=== PATIENT | female | born 1975 | race Caucasian/White ===

== ENCOUNTER → 2016-04-03 | Outpatient (CLI) | payer BC ==
[~2016-04-03] MED LIST: ESCI10TA17 PO; PRENTAB26 PO
== END | disposition home or self-care (01) ==
LOC: C.LABSPEC 13:44
PROVIDERS: ATTEND Obstetrics & Gynecology
DX: N76.0 Acute vaginitis (principal)

== ENCOUNTER → 2016-10-30 | Outpatient (CLI) | payer BC | END | disposition home or self-care (01) | LOC: C.PAPS 14:05 | PROVIDERS: ATTEND Obstetrics & Gynecology | DX: Z01.419 Encounter for gynecological examination (general) (routine) without abnormal findings (principal) ==

== ENCOUNTER 2018-03-24 01:51 | Observation (INO) ==
[2018-03-24] MEDS ORDERED: ALBUT/IPRATROP 3MG/0.5MG NEB 3 ML VIAL ONE (01:57)
[2018-03-24] MEDS ORDERED: SODIUM CHLORIDE 0.9% 1000ML 1,000 ML IV ONE ×2 (02:00→03:53)
[2018-03-24] MEDS ORDERED: DEXAMETHASONE **PF** INJ 10 MG/ML VIAL IV ONE (02:00)
[2018-03-24] MEDS ORDERED: ALBUT/IPRATROP 3MG/0.5MG NEB 3 ML VIAL NEB ONE (02:00)
--- NOTE | 2018-03-24 02:01 | Emergency Department Note ---
ED Provider Note Name: Diana Downey Age: 43 F Arrives Via: POV Informant: Pt, CC: SHOB HPI: 42 female arrives for evaluation of SHOB. Patient with URI symptoms and fevers for last 4 to 5 days. Gradually worsening cough and shortness of breath over the last last day. Non-productive cough. Significantly worsening respiratory distress over the last few hours. Worse with exertion. Minimally better with rest. No medications prior to arrival. Associated diffuse chest tightness. Multiple sick family members. Did not get flu shot this year. Recent travel to [place]. No history of DVT, leg swelling, calf pain. Sister with Factor 5 and PEs, though patient states she was tested and is negative. No trauma, injury, syncope, rashes, headache, neck pain, nor other symptoms. No recent steroids nor antibiotics. She has history of asthma with last exacerbation 5 yrs ago requiring admission. ROS: See above HPI for pertinent positives & negatives. A total of 10 systems reviewed and were otherwise negative. Past Medical History: Asthma, Seasonal Allergies Past Surgical History: Family History: Sister with Factor 5 Social History: [employer], lives with family, no tobacco nor drug use Home Medications: none Allergies seasonal allergies Physical: Vitals: T37.5, P 144, R 18, BP 137/88, O2 98% RA Exam: GENERAL: Patient is very uncomfortable appearing and in moderate distress. EYES: No scleral icterus, unremarkable pupils. ENT: Mucous membranes moist, no nasal congestion. NECK: No masses appreciated, no meningismus, trachea is midline. RESPIRATORY: Moderate dyspnea, tachypnea, diffusely tight lung sounds with diffuse mild distant wheezing. CARDIOVASCULAR: Tachycardic. No murmurs, rubs, gallops appreciated. GASTROINTESTINAL: Abdomen soft, non-tender, no peritonitis. Bowel sounds positive. No masses appreciated. BACK: No midline tenderness, no CVA tenderness EXTREMITIES: Normal motion all extremities, no cyanosis, no edema. NEUROLOGIC: Alert and oriented, no acute motor or sensory deficits, no focal weakness, cranial nerves grossly intact. SKIN: No rash, no jaundice, no diaphoresis. ED Course: Prior Medical Record, Triage/Nursing Notes, Medications, Allergies reviewed by Me Vital Signs: reviewed and remarkable for Tachy Labs: Reviewed and remarkable for Mild WBC elevation, neg Trop, wnl dimer, normal bmp Interventions: Saline Lock, Duoneb x 1.5 hrs, Decadron 10mg IV Imaging: X ray results are stated below per my interpretation: Chest: 1 view: Hyperinflated lungs, No infiltrate, no effusion, normal cardiac border. EKG: Per My interpretation: ST 120bpm without ectopy nor ischmia. No recent for comparison Consults: Dr Kelly who will bring in for further monitoring/treatment Reassessments/Times: Much improved with clearing lungs though still very dyspneic and tachycardic. Blood pressure: Normal. No Referral necessary Disposition: Hospitalization. Prescriptions: None. Differentials: Asthma, PNA, Flu, PE, Dissection, ACS, Pericarditis amongst other pathologies. Medical Decision Making: Pleasant 43 yr old female in status asthmaticus on arrival and very shob. Moving minimal air on arrival. Started continuous neb with initially loud wheezing and then gradually clearing lung sounds. She was tachy on arrival and thus given fluids but continued to remain tachycardic. She Was given further fluids with mild improvement. Labs with mild WBC elevation though no fever. She has clear CXR without infiltrate. Dimer wnl and symptoms more consistent with asthma. I do not feel that she requires CT PE at this time, and I think risks of imaging outweight benefits. Suspect underlying issue is same viral process her son currently has. Discussed abx with hospitalist who will manage further. Impression: Asthma with status asthmaticus Tachycardia Tucker Alvarez MD Impression & Plan Asthma with status asthmaticus, Tachycardia Past Med/Surg History Social History Smoking Status: Never smoker Results & Data Vital Signs Vital Signs - 24 hr 03/24/18 01:53 03/24/18 01:57 03/24/18 02:48 Temperature 37.5 C Temperature Source Oral Sepsis Recent Fever Within 48 Hours No Sepsis Action Taken by Nursing No Action Required Pulse Rate 144 H Pulse Rate [Finger] 128 H Respiratory Rate 18 22 Respiratory Effort / Characteristics Non-Labored Respiratory Depth Normal Respiratory Pattern Regular Blood Pressure 137/88 Blood Pressure [Left Arm] 115/79 Blood Pressure Mean 104 Blood Pressure Mean [Left Arm] 91 Pulse Oximetry 98 99 Oxygen Delivery Method Room Air Room Air Room Air Oxygen Flow Rate 03/24/18 03:45 03/24/18 04:00 03/24/18 04:59 Temperature Temperature Source Sepsis Recent Fever Within 48 Hours Sepsis Action Taken by Nursing Pulse Rate Pulse Rate [Finger] 132 H 127 H Respiratory Rate 18 18 Respiratory Effort / Characteristics Respiratory Depth Respiratory Pattern Blood Pressure Blood Pressure [Left Arm] 109/75 106/66 Blood Pressure Mean Blood Pressure Mean [Left Arm] 86 79 Pulse Oximetry 95 97 97 Oxygen Delivery Method Room Air Nasal Cannula Nasal Cannula Oxygen Flow Rate 2 2 Laboratory Data Result diagrams: 03/24/18 02:10 03/24/18 02:10 Lab Results 03/24/18 03/24/18 03/24/18 Range/Units 02:10 02:10 02:10 WBC 14.99 H (4.8-10.8) K/uL RBC 4.22 (4.2-5.4) M/uL Hgb 13.0 (12.0-16.0) g/dL Hct 37.1 (37-47) % MCV 87.9 (80-100) fL MCH 30.8 (25-34) pg MCHC 35.0 (32-36) g/dL RDW Std Deviation 39.4 (36.4-46.3) fL RDW Coeff of Nayeli 12.2 (11.5-14.5) % Plt Count 172 (130-400) K/uL MPV 10.2 (7.4-10.4) fL Immature Gran % (Auto) 0.2 % Neut % (Auto) 79.3 % Lymph % (Auto) 10.9 % Pratt % (Auto) 8.5 % Eos % (Auto) 0.9 % Baso % (Auto) 0.2 % Immature Gran # (Auto) 0.03 H (0.00-0.02) K/uL Neut # (Auto) 11.89 H (1.4-6.5) K/uL Lymph # (Auto) 1.63 (1.2-3.4) K/uL Pratt # (Auto) 1.28 H (0.11-0.59) K/uL Eos # (Auto) 0.13 (0-0.5) K/uL Baso # (Auto) 0.03 (0-0.2) K/uL D-Dimer 450 (0-500) ug/L FEU Sodium 139 (136-145) mmol/L Potassium 3.7 (3.5-5.1) mmol/L Chloride 110 H (98-107) mmol/L Carbon Dioxide 21 (21-32) mmol/L Anion Gap 8.0 (3-11) BUN 16 (7-18) mg/dl Creatinine 0.90 (0.6-1.2) mg/dl Est Cr Clr Drug Dosing 78.3 ml/min Est GFR ( Amer) 91.4 Est GFR (Non-Af Amer) 78.9 BUN/Creatinine Ratio 17.7 (10-20) Glucose 116 H (70-99) mg/dl Calcium 9.0 (8.5-10.1) mg/dl Troponin I < 0.015 (0-0.045) ng/ml Influenza Type A (PCR) (Neg) Influenza Type B (PCR) (Neg) 03/24/18 Range/Units 02:10 WBC (4.8-10.8) K/uL RBC (4.2-5.4) M/uL Hgb (12.0-16.0) g/dL Hct (37-47) % MCV (80-100) fL MCH (25-34) pg MCHC (32-36) g/dL RDW Std Deviation (36.4-46.3) fL RDW Coeff of Nayeli (11.5-14.5) % Plt Count (130-400) K/uL MPV (7.4-10.4) fL Immature Gran % (Auto) % Neut % (Auto) % Lymph % (Auto) % Pratt % (Auto) % Eos % (Auto) % Baso % (Auto) % Immature Gran # (Auto) (0.00-0.02) K/uL Neut # (Auto) (1.4-6.5) K/uL Lymph # (Auto) (1.2-3.4) K/uL Pratt # (Auto) (0.11-0.59) K/uL Eos # (Auto) (0-0.5) K/uL Baso # (Auto) (0-0.2) K/uL D-Dimer (0-500) ug/L FEU Sodium (136-145) mmol/L Potassium (3.5-5.1) mmol/L Chloride (98-107) mmol/L Carbon Dioxide (21-32) mmol/L Anion Gap (3-11) BUN (7-18) mg/dl Creatinine (0.6-1.2) mg/dl Est Cr Clr Drug Dosing ml/min Est GFR ( Amer) Est GFR (Non-Af Amer) BUN/Creatinine Ratio (10-20) Glucose (70-99) mg/dl Calcium (8.5-10.1) mg/dl Troponin I (0-0.045) ng/ml Influenza Type A (PCR) Neg for Influ A (Neg) Influenza Type B (PCR) Neg for Influ B (Neg) Administered Medications Discontinued Medications Albuterol (Duoneb) Confirm Administered Dose 3 ml .ROUTE .STK-MED ONE Stop: 03/24/18 01:58 Last Admin: 03/24/18 01:58 Dose: 3 ml Albuterol (Duoneb) 12 ml NEB ONE ONE Stop: 03/24/18 02:01 Last Admin: 03/24/18 02:15 Dose: 12 ml Dexamethasone Sodium Phosphate (Decadron Pf) 10 mg IV NOW ONE Stop: 03/24/18 02:01 Last Admin: 03/24/18 02:15 Dose: 10 mg Sodium Chloride (Nss 1000ml) 1,000 mls @ 999 mls/hr IV .Q1H1M ONE Stop: 03/24/18 03:00 Last Infusion: 03/24/18 03:17 Dose: 0 mls/hr Admin: 03/24/18 02:15 Dose: 999 mls/hr Sodium Chloride (Nss 1000ml) 1,000 mls @ 999 mls/hr IV .Q1H1M ONE Stop: 03/24/18 04:53 Last Infusion: 03/24/18 05:02 Dose: 0 mls/hr Admin: 03/24/18 04:00 Dose: 999 mls/hr Discharge Plan Visit Data Chief Complaint: Respiratory Problems Stated Complaint: ASTHMA ATTACK, UPPER RESP INFECTION ED Provider: Tucker Alvarez Discharge Problem: Asthma with status asthmaticus, Tachycardia Forms Stand Alone Forms: My [employer] Prescriptions Prescriptions: No Action albuterol sulfate 90 mcg/actuation HFA aerosol inhaler 2 puff Inhalation QID PRN (Reason: Shortness Of Breath Or Wheezing) RF: 0 fluticasone 50 mcg/actuation spray,suspension 1 spray Intranasal DAILY RF: 0 Referrals Referrals: PCP,NO [Primary Care Provider] -
[2018-03-24 02:53] LABS: Basophils # (auto) 0.03 K/uL (0-0.2); Basophils % (auto) 0.2 %; Eosinophils # (auto) 0.13 K/uL (0-0.5); Eosinophils % (auto) 0.9 %; Hematocrit (blood only) 37.1 % (37-47); Immature Granulocytes # (auto) 0.03 K/uL (0.00-0.02); Immature Granulocytes % (auto) 0.2 %; Lymphocytes # (auto) 1.63 K/uL (1.2-3.4); Lymphocytes % (auto) 10.9 %; Mean Corpuscular Volume 87.9 fL (80-100); Mean Platelet Volume 10.2 fL (7.4-10.4); Monocytes # (auto) 1.28 K/uL (0.11-0.59); Monocytes % (auto) 8.5 %; Neutrophils # (auto) 11.89 K/uL (1.4-6.5); Neutrophils % (auto) 79.3 %; Platelet Count 172 K/uL (130-400); RDW Coefficient of Variation 12.2 % (11.5-14.5); RDW Standard Deviation 39.4 fL (36.4-46.3); Red Blood Count 4.22 M/uL (4.2-5.4); White Blood Count 14.99 K/uL (4.8-10.8)
[2018-03-24 02:56] LABS: Creatinine Clr Calc Pharmacy 78.3 ml/min
[2018-03-24 03:08] LABS: BUN Creatinine Ratio 17.7 (10-20); Blood Urea Nitrogen 16 mg/dl (7-18); Carbon Dioxide 21 mmol/L (21-32); Chloride 110 mmol/L (98-107); Est GFR (African American) 91.4; Est GFR (Non-African American) 78.9; Glucose 116 mg/dl (70-99); Potassium 3.7 mmol/L (3.5-5.1); Sodium 139 mmol/L (136-145)
[2018-03-24 03:10] LABS: Influenza A virus by PCR Neg for Influ A (Neg); Influenza B virus by PCR Neg for Influ B (Neg)
[2018-03-24 03:13] LABS: Troponin I < 0.015 ng/ml (0-0.045)
--- NOTE | 2018-03-24 05:24 | History & Physical Report ---
Date of Service March 24, 2018 Assessment & Plan (1) Asthma with status asthmaticus: 43 y/o F Hx asthma, seasonal allergies. The pt has had upper respiratory symptoms for > 5 days. She reports a fever of 100.5 3 days ago, a productive cough and progressive dyspnea pronounced with exertion. she states that she has occasionally had some blood streaks in her sputum. She presented to the ER early AM due to nonresolving symptoms and SOB. She was markedly tachypneic on arrival although she was able to maintain a saturation in the low 90s. Initial CXR is likely clear although there may be a developing RLL infiltrate. Labs are notable for leukocytosis. The pt is admitted due to persistent dyspnea which did not improve with steroids and an 1.5 hr neb treatment provided in the ER. As I cannot r/o PNM I will placed her on a course of Doxycycline. She will be placed on scheduled solumedrol and albuterol otherwise. The reported blood streaking is apparently infrequent and likely related to tracheal irritation. A sputum culture is pending and if hemoptysis persists or worsens we would consider a CT chest. Full code - SCDs due to potential hemoptysis Total time for this admit including review of labs, meds, imaging, records - discussion with t and ER attending - 35 min Present on Admission?: Yes History of Present Illness Chief Complaint: Cough, SOB Primary Care Provider: NO PCP 43 y/o F Hx asthma, seasonal allergies. The pt has had upper respiratory symptoms for > 5 days. She reports a fever of 100.5 3 days ago, a productive cough and progressive dyspnea pronounced with exertion. she states that she has occasionally had some blood streaks in her sputum. She presented to the ER early AM due to nonresolving symptoms and SOB. She was markedly tachypneic on arrival although she was able to maintain a saturation in the low 90s. Initial CXR is likely clear although there may be a developing RLL infiltrate. Labs are notable for leukocytosis. PMH: 1) Asthma 2) Seasonal allergies Social: Does not smoke, rarely drinks Family: Mother due to meningioma Allergies Allergy/AdvReac Type Severity Reaction Status Date / Time Iodinated Contrast- Oral and Allergy Mild HIVES Verified 03/24/18 03:17 IV Dye clarithromycin AdvReac Mild GI SYMPTOMS Verified 03/24/18 03:17 Home Medications Home Medications Medication Instructions Recorded Confirmed Type albuterol sulfate 2 puff INHALATION QID PRN 03/24/18 03/24/18 History fluticasone 1 spray INTRANASAL DAILY 03/24/18 03/24/18 History Past Med/Surg History Social History Smoking Status: Never smoker Review of Systems Gen: Fevers reported - states they terminated 3 days ago ENT: Denies throat pain, hearing loss Eyes: Denies acute visual changes CV: Denies CP, palpitations Pulmonary: SOB and a productive cough as above GI: Denies N/V, diarrhea, constipation Neuro: Denies acute or unilateral weakness, acute gait impairment, headache or acute visual changes Musculoskeletal: Denies joint pain, inflammation Endocrine: Denies polydipsia, polyuria Skin: Denies acute rashes or ulcers Physical Exam 2 Vital Signs (Past 24 Hours): Last Vital Signs Temp 37.5 C 03/24/18 01:53 Pulse 127 H 03/24/18 04:59 Resp 18 03/24/18 04:59 BP 106/66 03/24/18 04:59 Pulse Ox 97 03/24/18 04:59 Physical Exam: General: AAO x 3, no distress ENT: No erythema or exudates, no thrush Eyes: CAROLINE, EOMI Head and neck: Normocephalic, atraumatic, No JVD, neck is supple. Chest/heart: Nontender, S1,2, RRR, no murmurs, no gallops Lungs: CTAB, no wheezing or crackles - reduced air entry is appreciated in the R lower lung Abdomen: Nontender, nondistended, BS+ Neuro: AAO x 3, speech is clear, no unilateral weakness or loss of sensation, coordination intact Musculoskeletal: No joint inflammation, muscle tenderness, FROM Skin: No acute rashes or ulcers Extremities: No clubbing, cyanosis, edema _ (1) Asthma with status asthmaticus Asthma persistence: persistent Asthma severity: severe Qualified Code(s): J45.52 - Severe persistent asthma with status asthmaticus
[2018-03-24] MEDS ORDERED: ALBUTEROL 0.083% NEBU SOLN 3 ML VIAL NEB SCH (05:45)
[2018-03-24] MEDS ORDERED: PNEUMOCOCCAL ADMINISTRATION CHARGE ONE (06:15)
[2018-03-24] MEDS ORDERED: PNEUMOCOCCAL POLYSACCHARIDES 25 MCG/0.5 ML VIAL/SYR IM ONE (06:15)
[2018-03-24] MEDS ORDERED: INFLUENZA ADMINISTRATION CHARGE ONE (06:15)
[2018-03-24] MEDS ORDERED: INFLUENZA VIRUS QUAD VACCINE 0.5 ML SYR IM ONE (06:15)
--- NOTE | 2018-03-24 06:15 | XRay Report ---
XR chest 1V portable CLINICAL HISTORY: SHOB dyspnea COMPARISON STUDY: No previous studies for comparison. FINDINGS: The bones soft tissues and hemidiaphragms are normal. The cardiomediastinal silhouette is n ormal. The lungs are clear. The pulmonary vasculature is normal. IMPRESSION: Negative chest. The above report was generated using voice recognition software. It may contain grammatical, syntax or spelling errors. Electronically signed by: Mitchell Riggs M.D. 03/24/2018 6:14 AM
[2018-03-24] MEDS ORDERED: ACETAMINOPHEN 325 MG TAB PO PRN (06:22)
[2018-03-24] MEDS ORDERED: ONDANSETRON INJ 2 MG/ML 2 ML VIAL IV PRN (06:22)
[2018-03-24] MEDS ORDERED: D5NSS + 20MEQ KCL 20 MEQ/1,000 ML BAG IV SCH (06:22)
[2018-03-24] MEDS ORDERED: POLYETHYLENE (MIRALAX) 17 GM PACK PO PRN (06:22)
[2018-03-24] MEDS: ALBUTEROL 0.083% NEBU SOLN 3 ML VIAL NEB SCH ×2 (07:06→13:31)
--- NOTE | 2018-03-24 07:19 | Progress Note ---
Date of Service March 24, 2018 Assessment & Plan (1) Asthma with status asthmaticus: 43 y/o F Hx asthma, seasonal allergies who presented to the emergency department with upper respiratory symptoms, fever, cough and shortness of breath. She was markedly tachypneic on arrival although she was able to maintain a saturation in the low 90s. The pt was admitted due to persistent dyspnea which did not improve with steroids and an 1.5 hr neb treatment provided in the ER. Asthma Exacerbation - patient looks greatly improved this afternoon - able to carry on conversations w/out SOB and not requiring oxygen. Scattered wheezing noted on auscultation of chest, and patient does report chest tightness and frequent coughing with ambulation - space out methylprednisone 40 mg every 6 hours to every 12 hours, aiming to transition to p.o. prednisone tomorrow - Change albuterol nebulizers every 6 hours to 4 puffs of albuterol inhaler every 6 hours scheduled - Discontinue IV fluids given patient tolerating p.o. -asthma otherwise very well controlled - pt's last exacerbation was in her 20s. She does not require maintenance inhalers and uses albuterol very infrequently. No need for addition to home regimen. Pneumonia -Chest x-ray clear, however on auscultation, patient has decreased breath sounds in the right lower lobe. This, coupled with her increased white cell count with a neutrophilic shift is concerning for developing pneumonia that is not visible on chest x-ray. -continue treatment with doxycycline 100 mg IV twice daily Tachycardia -Patient tachycardic up to 130s, this is sinus tachycardia -Likely secondary to IV steroids as well as nebulizers -transition nebs to inhalers and monitor Hemoptysis -seems to be improving, will continue to monitor -if she has more episodes -> consider CTA given tachycardic as well DVT Prophylaxis: SCDs due to hemoptysis Code status: Full Disposition: remains on telemetry, anticipate d/c tomorrow or day after Asthma persistence: persistent Asthma severity: severe Qualified Code(s): J45.52 - Severe persistent asthma with status asthmaticus (2) Pneumonia: (3) Tachycardia: Supervising Physician Co-Signing Physician Notes Patient seen and examined at the bedside with Dr. Sanford. Agree with history , exam findings, assessment and plan of care as documented. In brief, Ms Downey is a 43 year old female with history of well controlled asthma admitted with asthma exacerbation. H&P reviewed. Labs and imaging reviewed. VSS. Slightly tachy. Fair air movement throughout. Seen soon after neb. Minimal end expiratory wheezes throughout. 1.asthma exacerbation. Improving. Continue IV steroid, but likely can transition to oral prednisone tomorrow. Space out nebs. 2.early pneumonia. Continue doxy. Switch to PO tomorrow. 3. tachycardia. Secondary to beta agonists. Dispo: pending clinical improvement. Physical Exam 2 Vital Signs (Past 24 Hours): Last Vital Signs Temp 37.4 C 03/24/18 05:48 Pulse 114 H 03/24/18 07:06 Resp 16 03/24/18 07:06 BP 125/77 03/24/18 05:48 Pulse Ox 98 03/24/18 07:06 Resident Activity Tracking Resident Involvement: Resident Care Provided Care Provided: Adult Hospital Medicine
[2018-03-24] MEDS: methylPREDNISolone 40 MG in SYRINGE 0 ML IV SCH ×3 (08:26→19:42)
[2018-03-24] MEDS: DOXYCYCLINE HYCLATE 100 MG in DEXTROSE 5% 100 ML IV SCH ×2 (08:26→20:15)
[2018-03-24] MEDS: ALBUTEROL HFA 8 GM INHALER INH SCH ×2 (18:12→21:23)
[2018-03-24] MEDS: ZOLPIDEM TARTRATE 5 MG TAB PO PRN (21:22)
[2018-03-24] MEDS: MAGNESIUM HYDROXIDE SUSP 30 ML UDC PO PRN (22:43)
[2018-03-24] MEDS ORDERED: COUGH DROP (SUGAR FREE) LOZ 24 LOZ/1 BOX BUCCAL STA (23:06)
[2018-03-25] MEDS: BENZONATATE 100 MG CAPSULE PO SCH ×4 (00:13→20:39)
[2018-03-25] MEDS: ALBUTEROL HFA 8 GM INHALER INH SCH ×2 (02:01→11:50)
[2018-03-25] MEDS: DOXYCYCLINE HYCLATE 100 MG in DEXTROSE 5% 100 ML IV SCH ×2 (05:34→19:19)
[2018-03-25] MEDS: methylPREDNISolone 40 MG in SYRINGE 0 ML IV SCH (07:57)
[2018-03-25 08:05] LABS: Hematocrit (blood only) 35.3 % (37-47); Hemoglobin 12.1 g/dL (12.0-16.0); Mean Corpuscular Hgb Conc 34.3 g/dL (32-36); Mean Corpuscular Volume 90.7 fL (80-100); Mean Platelet Volume 10.2 fL (7.4-10.4); Platelet Count 210 K/uL (130-400); RDW Coefficient of Variation 12.4 % (11.5-14.5); Red Blood Count 3.89 M/uL (4.2-5.4); White Blood Count 24.65 K/uL (4.8-10.8)
[2018-03-25 08:14] LABS: Basophils # (auto) 0.01 K/uL (0-0.2); Immature Granulocytes # (auto) 0.13 K/uL (0.00-0.02); Immature Granulocytes % (auto) 0.5 %; Lymphocytes # (auto) 0.99 K/uL (1.2-3.4); Monocytes # (auto) 1.11 K/uL (0.11-0.59); Monocytes % (auto) 4.5 %; Neutrophils # (auto) 22.41 K/uL (1.4-6.5)
[2018-03-25 08:39] LABS: Albumin Globulin Ratio 0.9 (0.9-2); Albumin Level 3.4 gm/dl (3.4-5.0); BUN Creatinine Ratio 21.1 (10-20); Bilirubin,Total 0.3 mg/dl (0.2-1); Calcium 8.5 mg/dl (8.5-10.1); Creatinine Clr Calc Pharmacy 80.4 ml/min; Est GFR (African American) 102.3; Est GFR (Non-African American) 88.3; Potassium 4.8 mmol/L (3.5-5.1); Total Protein 7.4 gm/dl (6.4-8.2)
[2018-03-25] MEDS ORDERED: ALBUTEROL 0.083% NEBU SOLN 3 ML VIAL NEB STA (13:39)
[2018-03-25] MEDS ORDERED: ALBUTEROL 0.083% NEBU SOLN 3 ML VIAL NEB PRN (13:45)
[2018-03-25] MEDS ORDERED: ALBUTEROL 0.5% NEB SOLN 2.5 MG/0.5 ML VIAL NEB SCH (14:00)
--- NOTE | 2018-03-25 17:39 | Family Medicine Progress Note ---
Date of Service March 25, 2018 Assessment & Plan (1) Asthma exacerbation: (1) Asthma with status asthmaticus: 43 y/o F Hx asthma, seasonal allergies who presented to the emergency department with upper respiratory symptoms, fever, cough and shortness of breath. She was markedly tachypneic on arrival although she was able to maintain a saturation in the low 90s. The pt was admitted due to persistent dyspnea which did not improve with steroids and an 1.5 hr neb treatment provided in the ER. Asthma Exacerbation - patient looks greatly improved this afternoon - but still short of breath with ambulation and became tachycardic in the 140's upon ambulation - switch from IV steroids to 40mg PO prednisone today - Change nebs to xopenex q4 scheduled and q2 prn as patient was anxious with the albuterol and tachy -asthma otherwise very well controlled - pt's last exacerbation was in her 20s. She does not require maintenance inhalers and uses albuterol very infrequently. No need for addition to home regimen. - Advised to get nebulizer at home for when she has exacerbations Pneumonia -Chest x-ray clear, however on auscultation, patient has decreased breath sounds in the right lower lobe. This, coupled with her increased white cell count with a neutrophilic shift is concerning for developing pneumonia that is not visible on chest x-ray. -continue treatment with doxycycline 100 mg IV twice daily-- will switch to PO doxy tomorrow Tachycardia -Likely secondary to IV steroids as well as nebulizers -transition nebs to xopenex and monitor DVT Prophylaxis: SCDs due to hemoptysis Code status: Full Disposition: remains on telemetry, anticipate d/c tomorrow or day after Supervising Physician Co-Signing Physician Notes Attending attestation Pt seen and examined in concert with Dr. Ramirez. In agreement with the documented findings as noted in the resident documentation with any exceptions or additions as noted here. Pt resting comfortably in bed on room air. Reports a 3 hour coughing fit last night which resolved w/ albuterol nebulizer. Still having SOB with ambulation, though improved from admission. On examination, decreased breath sounds throughout with scattered wheezing. S1/ S2 nl RRR no MCG. Asthma exacerbation � continue nebulizer treatments and steroid therapy. Taper for likely d/c in AM Significant allergic rhinitis hx � well controlled for many years after injections, but did have significant second hand smoke exposure prior to exacerbation, atop URI CAP � continue doxy, transition to PO. Else per resident documentation as noted above. Subjective Long discussion with patient at bedside. She notes she had a severe coughing spell last night for 3 hours and nurse would not order nebulizer for her. She was just given tessalon perles. She tried walking this afternoon and said she felt very short of breath and her heart rates was very elevated. She notes that she still continues to cough intermittently She denies any fevers, chills, chest pain, nausea, vomiting, leg swelling, ab pain Review of Systems All systems reviewed & are unremarkable except as noted in HPI & below Physical Exam 2 Vital Signs (Past 24 Hours): Last Vital Signs Temp 37.2 C 03/25/18 15:14 Pulse 114 H 03/25/18 16:00 Resp 16 03/25/18 15:14 BP 110/74 03/25/18 15:14 Pulse Ox 94 03/25/18 15:14 Constitutional: WD/WN, vitals as above no acute distress Neck: trachea midline, no thyromegaly Respiratory: normal respiratory effort, lungs clear to auscultation Cardiovascular: RRR, no murmur, no edema Extremities: normal capillary refill; no calf tenderness and no edema Gastrointestinal (Abdomen): normal bowel sounds, soft, nontender, no hepatosplenomegaly Skin: no rashes, warm and dry Psychiatric: A+Ox3, euthymic affect Affect: + anxious affect
[2018-03-25] MEDS: LEVALBUTEROL HCL 0.63 MG/3 ML NEB NEB SCH ×2 (19:13→23:12)
[2018-03-25] MEDS ORDERED: COUGH DROP (SUGAR FREE) LOZ 24 LOZ/1 BOX BUCCAL PRN (19:37)
[2018-03-25] MEDS ORDERED: COUGH DROP (SUGAR FREE) LOZ 24 LOZ/1 BOX BUCCAL ONE (20:29)
[2018-03-25] MEDS: MAGNESIUM HYDROXIDE SUSP 30 ML UDC PO PRN (20:43)
[2018-03-25] MEDS: ALUMINUM/MAGNESIUM SUSP 30 ML UDC PO PRN (20:46)
[2018-03-25] MEDS: ZOLPIDEM TARTRATE 5 MG TAB PO PRN (21:56)
[2018-03-26] MEDS: LEVALBUTEROL HCL 0.63 MG/3 ML NEB NEB SCH ×4 (03:10→15:15)
[2018-03-26] MEDS: BENZONATATE 100 MG CAPSULE PO SCH ×2 (08:53→13:23)
[2018-03-26] MEDS ORDERED: DOXYCYCLINE HYCLATE 100 MG CAP PO SCH (09:00)
[2018-03-26] MEDS ORDERED: predniSONE 20 MG TAB PO SCH (09:00)
[2018-03-26] MEDS: ALUMINUM/MAGNESIUM SUSP 30 ML UDC PO PRN (11:14)
--- NOTE | 2018-03-26 11:33 | Discharge Summary ---
Date of Service March 26, 2018 Admission HPI Per Admitting Provider 43 y/o F Hx asthma, seasonal allergies. The pt has had upper respiratory symptoms for > 5 days. She reports a fever of 100.5 3 days ago, a productive cough and progressive dyspnea pronounced with exertion. she states that she has occasionally had some blood streaks in her sputum. She presented to the ER early AM due to nonresolving symptoms and SOB. She was markedly tachypneic on arrival although she was able to maintain a saturation in the low 90s. Initial CXR is likely clear although there may be a developing RLL infiltrate. Labs are notable for leukocytosis. PMH: 1) Asthma 2) Seasonal allergies Social: Does not smoke, rarely drinks Family: Mother due to meningioma Admission Exam (Per Admitting) Constitutional General: AAO x 3, no distress ENT: No erythema or exudates, no thrush Eyes: CAROLINE, EOMI Head and neck: Normocephalic, atraumatic, No JVD, neck is supple. Chest/heart: Nontender, S1,2, RRR, no murmurs, no gallops Lungs: CTAB, no wheezing or crackles - reduced air entry is appreciated in the R lower lung Abdomen: Nontender, nondistended, BS+ Neuro: AAO x 3, speech is clear, no unilateral weakness or loss of sensation, coordination intact Musculoskeletal: No joint inflammation, muscle tenderness, FROM Skin: No acute rashes or ulcers Extremities: No clubbing, cyanosis, edema Discharge Data Consultations 03/24/18 04:06 ED Decision to Admit Stat Hospital Course (1) Asthma exacerbation: (1) Asthma with status asthmaticus: 43 y/o F Hx asthma, seasonal allergies who presented to the emergency department with upper respiratory symptoms, fever, cough and shortness of breath. She was markedly tachypneic on arrival although she was able to maintain a saturation in the low 90s. The pt was admitted due to persistent dyspnea which did not improve with steroids and an 1.5 hr neb treatment provided in the ER. Asthma Exacerbation - patient looks greatly improved this afternoon - but still short of breath with ambulation and became tachycardic in the 140's upon ambulation - switched from IV steroids to 40mg PO prednisone on 03/25 - Changed nebs to xopenex q4 scheduled and q2 prn as patient was anxious with the albuterol and tachy -asthma otherwise very well controlled - pt's last exacerbation was in her 20s. She had not require maintenance inhalers and had not used albuterol very infrequently. - Advised to use Albuterol inhaler q4H prn - Sent home of 2 additional days of PO Prednisone 40 mg daily for a total of 5 days Pneumonia -Chest x-ray clear, however on auscultation, patient has decreased breath sounds in the right lower lobe. This, coupled with her increased white cell count with a neutrophilic shift is concerning for developing pneumonia that is not visible on chest x-ray. - Continued treatment with empiric doxycycline 100 mg IV twice daily up until day of discharge - On day of discharge , procalcitonin was negative. Subsequently doxycycline was stopped on discharge given low likelihood of underlying bacterial pneumonia Tachycardia -Likely secondary to IV steroids as well as nebulizers -transitioned nebs to xopenex and monitor - resolved by discharge DVT Prophylaxis: SCDs Code status: Full Discharge Instructions You were admitted with Asthma Exacerbation. You will be going home with prescriptions for Albuterol as needed for shortness of breath, wheezing or chest tigheness and 2 days of Prednisone ( 40 mg daily). Please take as prescribed Please follow up with [facility] for follow up and establishment of care within 1-2 weeks Call your local emergency number or GO to Emergency dept if: You have severe shortness of breath. Your lips or nails turn blue or hanson. The skin around your neck and ribs pulls in with each breath. You have shortness of breath, even after you take your short-term medicine as directed. Your peak flow numbers are in the red zone of your AAP. Call your doctor if: You run out of medicine before your next refill is due. Your symptoms get worse. You need to take more medicine than usual to control your symptoms. You have questions or concerns about your condition or care. Supervising Physician Co-Signing Physician Notes Attending attestation Pt seen and examined in concert with Dr. Gonzalez. In agreement with the documented findings as noted in the resident documentation with any exceptions or additions as noted here. Pt slept well over night with considerable decrease in coughing and shortness of breath at rest and with activity. Does have a 2 year old at home and is concerned that she will not be able to be as active with the child as normal. On examination, improved air movement throughout without appreciable wheeze. S1/ S2 nl RRR no MCG Acute asthma exacerbation � complete steroid burst and q4h albuterol inhaler with establish/f/u at [facility] Else as per resident documentation.
== END 2018-03-26 17:19 | disposition home or self-care (01) ==
LOC: ED 01:51 → 2S 01:51 → SUATTDRO 04:29 → 2S 05:23